=== PATIENT | female | born 1965 | race Two or more races ===

== ENCOUNTER 2020-05-21 07:56 | Day surgery (SDC) | payer OTHER | END 2020-05-21 12:15 | disposition home or self-care (01) | LOC: AMB-ENDOS 07:56 | PROVIDERS: ATTEND Colon & Rectal Surgery | DX: D12.5 Benign neoplasm of sigmoid colon (principal); K29.50 Unspecified chronic gastritis without bleeding; Z12.11 Encounter for screening for malignant neoplasm of colon; Z20.828 Contact with and (suspected) exposure to other viral communicable diseases ==

== ENCOUNTER → 2022-05-16 | Outpatient (CLI) | payer OTHER | END | disposition home or self-care (01) | LOC: RAD 11:58 | PROVIDERS: ATTEND General Practice | DX: R42 Dizziness and giddiness (principal); K57.30 Diverticulosis of large intestine without perforation or abscess without bleeding | CPT/HCPCS: 70551 ==